=== PATIENT | male | born 1950 | race Caucasian/White ===

== ENCOUNTER 2019-08-04 15:11 | Outpatient (CLI) | payer MEDICARE, BC ==
--- NOTE | 2019-08-04 15:47 | RAD ---
KUB INDICATION: Renal stones COMPARISON: None FINDINGS: Bowel gas: There is a mild amount retained stool. Lung bases: Clear. Additional findings: No suspicious calcification demonstrated. Osseous structures: There is a right total hip prosthesis. There is scattered degenerative and osteoa rthritic change present. IMPRESSION: 1. Mild amount of retained stool within the colon.
== END 2019-08-04 15:12 | disposition home or self-care (01) ==
LOC: BICRAD 15:11
PROVIDERS: ATTEND Urology
DX: N20.0 Calculus of kidney (principal); K59.00 Constipation, unspecified
CPT/HCPCS: 74018